=== PATIENT | female | born 1990 | race Caucasian/White ===

== ENCOUNTER 2017-01-01 14:57 | Emergency (ER) | payer OTHER ==
[~2017-01-01] VITALS: Ht 167.6 cm; Wt 62.5 kg
[2017-01-01 15:00] VITALS: BP 143/80
[2017-01-01] MEDS ORDERED: CHOL100015 PO (15:46)
[2017-01-01] MEDS ORDERED: INSU100C SQ-INSULIN (15:46)
[2017-01-01] MEDS ORDERED: DESO1TAB15 PO (15:47)
[2017-01-01] MEDS ORDERED: LISI5TAB7 PO (15:47)
== END 2017-01-01 16:43 | disposition home or self-care (01) ==
LOC: ED 16:41
DX: R10.30 Lower abdominal pain, unspecified (principal)
CPT/HCPCS: 36415; 81001; 84703; 87086; 99284

== ENCOUNTER 2020-01-07 09:45 | Outpatient (CLI) | payer OTHER ==
[~2020-01-07 09:45] MED LIST: CHOL100015 PO; DESO1TAB15 PO; INSU100C SQ-INSULIN; LISI5TAB7 PO
== END 2020-01-07 23:59 | disposition home or self-care (01) ==
LOC: LAB 09:45
PROVIDERS: ATTEND Internal Medicine Endocrinology, Diabetes & Metabolism
DX: E10.9 Type 1 diabetes mellitus without complications (principal)
CPT/HCPCS: 36415; 83036

== ENCOUNTER 2021-05-24 08:27 | Outpatient (CLI) | payer OTHER ==
[2021-05-24 08:54] LABS: CHLORIDE 102 mmol/L (98-107)
[2021-05-24 09:09] LABS: ALANINE AMINOTRANSFERASE 19 U/L (12-78); ALBUMIN 3.6 g/dL (3.4-5.0); ALKALINE PHOSPHATASE 42 U/L (45-117); ANION GAP 6 mmol/L (5-15); BILIRUBIN,TOTAL 0.4 mg/dL (0.2-1.0); CALCIUM 8.5 mg/dL (8.5-10.1); CHOL/HDL RATIO 1.9; CHOLESTEROL, TOTAL 150 mg/dL (140-239); CREATININE 0.78 mg/dL (0.55-1.02); HDL CHOL % 53 % (28-40); HDL CHOLESTEROL (DIRECT) 80 mg/dL (40-60); LDL CHOLESTEROL,CALCULATED 63 mg/dL (54-169); LDL/HDL RATIO 0.8 (0.5-3.0); TOTAL PROTEIN 6.9 g/dL (6.4-8.2); TRIGLYCERIDES 35 mg/dL (50-200); VLDL CHOLESTEROL 7 mg/dL (0-25)
== END 2021-05-24 23:59 | disposition home or self-care (01) ==
LOC: LAB 08:27
PROVIDERS: ATTEND Internal Medicine Endocrinology, Diabetes & Metabolism
DX: E10.9 Type 1 diabetes mellitus without complications (principal); F41.9 Anxiety disorder, unspecified
CPT/HCPCS: 36415; 80053; 80061; 82043; 82570; 83036; 84443